=== PATIENT | female | born 1965 | race Caucasian/White ===

== ENCOUNTER → 2018-12-22 | Outpatient (CLI) | payer BC ==
[2018-12-22 10:50] VITALS: BMI 32.8
== END | disposition home or self-care (01) ==
LOC: LABWHC1 08:56
PROVIDERS: ATTEND Family Medicine
DX: R73.03 Prediabetes (principal)
CPT/HCPCS: 97802

== ENCOUNTER 2020-05-24 00:48 | Emergency (ER) | payer BC ==
[2020-05-24 01:02] VITALS: RESP 18
[2020-05-24] MEDS ORDERED: SODIUM CHLORIDE 0.9% 500 ML 500 ML IV STA (01:09)
[2020-05-24] MEDS ORDERED: SODIUM CHLORIDE 0.9% 1,000 ML IV STA (01:09)
[2020-05-24] MEDS ORDERED: KETOROLAC 15 MG/ML 1 ML VIAL IVP STA ×2 (01:09→02:07)
[2020-05-24] MEDS ORDERED: ONDANSETRON 4 MG/2 ML VIAL IVP STA ×2 (01:09→02:32)
--- NOTE | 2020-05-24 01:27 | ED ---
General Adult HPI - General Chief complaint: Back Pain/Injury Stated complaint: Back pain Time Seen by Provider: 05/24/20 01:04 Source: patient, family, RN notes reviewed Mode of arrival: ambulatory Limitations: no limitations - History of Present Illness Initial comments: This a 54-year-old female presents emergency from chief complaint left flank pain. Patient states his symptoms started around 2:00 this afternoon. Patient states that started in her back in which she felt she just injured back. Patient states symptoms are progressively worse and she has left lower quadrant abdominal pain. Patient did have an episode of nausea vomiting no fevers or chills no history kidney stones. Patient states that nothing really makes pain feel better or worse. Denies any change in bowel habits no dysuria no hematuria. - Related Data Home Medications Medication Instructions Recorded Confirmed ALPRAZolam [Xanax] 1 mg PO TID PRN 05/24/15 05/26/15 Ibuprofen [Motrin] 800 mg PO DIRECTED PRN 05/24/15 05/26/15 Venlafaxine HCl ER [Effexor Xr] 150 mg PO DAILY 05/24/15 05/26/15 Previous Rx's Medication Instructions Recorded Ketorolac [Toradol] 10 mg PO Q8HR #15 tab 05/24/20 Ondansetron Odt [Zofran Odt] 4 mg PO Q8HR PRN #10 tab 05/24/20 Tamsulosin [Flomax] 0.4 mg PO DAILY #7 cap 05/24/20 Allergies Allergy/AdvReac Type Severity Reaction Status Date / Time codeine Allergy Nausea & Verified 05/24/20 01:02 Vomiting pain medications AdvReac Nausea Uncoded 05/24/20 01:02 Review of Systems ROS Statement: Those systems with pertinent positive or pertinent negative responses have been documented in the HPI. ROS Other: All systems not noted in ROS Statement are negative. Past Medical History Past Medical History: Skin Disorder Additional Past Medical History / Comment(s): rt elbow tendonitis, eczema, depression History of Any Multi-Drug Resistant Organisms: None Reported Past Surgical History: Appendectomy, Orthopedic Surgery Additional Past Surgical History / Comment(s): ganglion cyst, rt elbow surgery Past Anesthesia/Blood Transfusion Reactions: Motion Sickness, Postoperative Nausea & Vomiting (PONV) Past Psychological History: Anxiety, Depression Smoking Status: Former smoker Past Alcohol Use History: Occasional Past Drug Use History: Marijuana - Past Family History Mother Family Medical History: Cancer General Exam Limitations: no limitations General appearance: alert, in no apparent distress Head exam: Present: atraumatic, normocephalic, normal inspection Neck exam: Present: normal inspection, full ROM. Absent: tenderness, meningismus, lymphadenopathy Respiratory exam: Present: normal lung sounds bilaterally. Absent: respiratory distress, wheezes, rales, rhonchi, stridor Cardiovascular Exam: Present: regular rate, normal rhythm, normal heart sounds. Absent: systolic murmur, diastolic murmur, rubs, gallop, clicks GI/Abdominal exam: Present: soft, tenderness (Minimal left lower quadrant), normal bowel sounds. Absent: distended, guarding, rebound, rigid Back exam: Present: normal inspection, full ROM, tenderness, CVA tenderness (L) (Mild). Absent: CVA tenderness (R) Neurological exam: Present: alert, oriented X3 Skin exam: Present: warm, dry, intact, normal color. Absent: rash Course Vital Signs 05/24/20 00:57 Temperature 98.5 F Pulse Rate 98 Respiratory 18 Rate Blood Pressure 151/79 O2 Sat by Pulse 99 Oximetry Medical Decision Making - Medical Decision Making 54-year-old female presented for flank pain. CT shows evidence of 5 mm UVJ stone. Patient urinalysis reveals hematuria. Kidney function within normal limits. Patient discharged with pain medication, Flomax, Zofran and oral Toradol with follow-up with urology. - Lab Data Result diagrams: 05/24/20 01:25 05/24/20 01:25 Lab Results 05/24/20 05/24/20 05/24/20 Range/Units 01:25 01:25 01:25 WBC 12.2 H (3.8-10.6) k/uL RBC 4.68 (3.80-5.40) m/uL Hgb 15.1 (11.4-16.0) gm/dL Hct 45.9 (34.0-46.0) % MCV 98.2 (80.0-100.0) fL MCH 32.2 (25.0-35.0) pg MCHC 32.8 (31.0-37.0) g/dL RDW 12.3 (11.5-15.5) % Plt Count 241 (150-450) k/uL Neutrophils % 81 % Lymphocytes % 11 % Monocytes % 5 % Eosinophils % 0 % Basophils % 1 % Neutrophils # 9.9 H (1.3-7.7) k/uL Lymphocytes # 1.4 (1.0-4.8) k/uL Monocytes # 0.6 (0-1.0) k/uL Eosinophils # 0.0 (0-0.7) k/uL Basophils # 0.1 (0-0.2) k/uL Sodium 138 (137-145) mmol/L Potassium 4.2 (3.5-5.1) mmol/L Chloride 106 (98-107) mmol/L Carbon Dioxide 24 (22-30) mmol/L Anion Gap 8 mmol/L BUN 15 (7-17) mg/dL Creatinine 0.87 (0.52-1.04) mg/dL Est GFR (CKD-EPI)AfAm 87 (>60 ml/min/1.73 sqM) Est GFR (CKD-EPI)NonAf 75 (>60 ml/min/1.73 sqM) Glucose 139 H (74-99) mg/dL Calcium 9.6 (8.4-10.2) mg/dL Total Bilirubin 0.4 (0.2-1.3) mg/dL AST 21 (14-36) U/L ALT 14 (4-34) U/L Alkaline Phosphatase 81 (38-126) U/L Total Protein 7.1 (6.3-8.2) g/dL Albumin 4.3 (3.5-5.0) g/dL Amylase 63 (30-110) U/L Lipase 68 (23-300) U/L Urine Color Red Urine Appearance Turbid H (Clear) Urine pH 5.5 (5.0-8.0) Ur Specific [place] 1.028 (1.001-1.035) Urine Protein 2+ H (Negative) Urine Glucose (UA) Trace H (Negative) Urine Ketones Negative (Negative) Urine Blood Large H (Negative) Urine Nitrite Negative (Negative) Urine Bilirubin Negative (Negative) Urine Urobilinogen <2.0 (<2.0) mg/dL Ur Leukocyte Esterase Trace H (Negative) Urine RBC >182 H (0-5) /hpf Urine WBC 15 H (0-5) /hpf Ur Squamous Epith Cells 22 H (0-4) /hpf Urine Bacteria Occasional H (None) /hpf Hyaline Casts 7 H (0-2) /lpf Urine Mucus Many H (None) /hpf Disposition Clinical Impression: Left ureteral calculus Disposition: HOME SELF-CARE Condition: Stable Instructions (If sedation given, give patient instructions): Kidney Stones (ED) Additional Instructions: Please return to the Emergency Department if symptoms worsen or any other concerns. Prescriptions: Tamsulosin [Flomax] 0.4 mg PO DAILY #7 cap Ketorolac [Toradol] 10 mg PO Q8HR #15 tab Ondansetron Odt [Zofran Odt] 4 mg PO Q8HR PRN #10 tab PRN Reason: Nausea Is patient prescribed a controlled substance at d/c from ED?: No Referrals: Jared Esposito DO [Primary Care Provider] - 1-2 days Jose Albarran MD [STAFF PHYSICIAN] - 1-2 days Time of Disposition: 02:17
[2020-05-24 01:39] LABS: Basophils # (A) 0.1 k/uL (0-0.2); Basophils % (A) 1 %; Eosinophils % (A) 0 %; HCT 45.9 % (34.0-46.0); HGB 15.1 gm/dL (11.4-16.0); Lymphocytes # (A) 1.4 k/uL (1.0-4.8); Lymphocytes % (A) 11 %; MCH 32.2 pg (25.0-35.0); MCHC 32.8 g/dL (31.0-37.0); MCV 98.2 fL (80.0-100.0); Mean Platelet Volume 7.3; Monocytes # (A) 0.6 k/uL (0-1.0); Monocytes % (A) 5 %; Neutrophils # (A) 9.9 k/uL (1.3-7.7); Neutrophils % (A) 81 %; Platelet Count 241 k/uL (150-450); RBC 4.68 m/uL (3.80-5.40); RDW 12.3 % (11.5-15.5); WBC 12.2 k/uL (3.8-10.6)
[2020-05-24 01:42] LABS: Appearance,Urine Turbid (Clear); Bacteria,Urine Occasional /hpf; Bilirubin,Urine Negative (Negative); Blood,Urine Large (Negative); Color,Urine Red; Glucose,Urine (UA) Trace (Negative); Hyaline Casts,Urine 7 /lpf (0-2); Ketones,Urine Negative (Negative); Leukocyte Esterase,Urine Trace (Negative); Mucus,Urine Many /hpf; Nitrite,Urine Negative (Negative); PH, Urine 5.5 (5.0-8.0); Protein,Urine 2+ (Negative); RBC,Urine >182 /hpf (0-5); Specific Gravity,Urine 1.028 (1.001-1.035); Squamous Epithelial Cell,Urine 22 /hpf (0-4); Urobilinogen,Urine <2.0 mg/dL (<2.0); WBC,Urine 15 /hpf (0-5)
[2020-05-24 01:46] LABS: Albumin 4.3 g/dL (3.5-5.0); Calcium 9.6 mg/dL (8.4-10.2); Potassium 4.2 mmol/L (3.5-5.1); Total Bilirubin 0.4 mg/dL (0.2-1.3); Total Protein 7.1 g/dL (6.3-8.2)
--- NOTE | 2020-05-24 01:47 | CT ---
EXAMINATION TYPE: CT abdomen pelvis wo con DATE OF EXAM: 05/24/2020 COMPARISON: None HISTORY: pain CT DLP: 771 mGycm Automated exposure control for dose reduction was used. Lung bases are clear. There is no pleural effusion. Heart size is normal. There is no pericardial eff usion. Liver spleen pancreas stomach gallbladder appear normal. Bile ducts are not dilated. There is no adrenal mass. Kidneys show normal size. There is left side hydronephrosis and perinephric edema. There is 5 mm obstructing calculus at the left ureteropelvic junction. There is 3 mm calculus lower pole left kidney. There is 2 mm calculus interpolar right kidney. There is no retroperitoneal adenopathy. Bladder distends smoothly. There is no inguinal hernia. There is no free fluid in the pel vis. There is no evidence of pelvic mass. There is no mesenteric edema. There is no ascites or free air. There is no bowel obstruction. Appendi x is not seen. There is no sign of thickened appendix. The lumbar vertebra have normal spacing and alignment. Posterior elements are intact. There is no com pression fracture. Bony pelvis is intact. IMPRESSION: Obstructing calculus at the left ureteropelvic junction with left-sided hydronephrosis and perinephri c edema. Small bilateral renal calculi.
[2020-05-24] MEDS ORDERED: TAMSULOSIN 0.4 MG CAP.ER.24H PO STA (02:07)
[2020-05-24] MEDS ORDERED: HYDROmorphone 0.5 MG/0.5 ML SYRINGE IVP STA (02:32)
[2020-05-24] MEDS ORDERED: traMADol 50 MG STARTER PACK 3 TAB BTL PO STA (02:32)
[2020-05-24 03:14] VITALS: BP 150/91; PULSE 99; TEMP 98.6
== END 2020-05-24 03:13 | disposition home or self-care (01) ==
LOC: EC 00:48
DX: N13.2 Hydronephrosis with renal and ureteral calculous obstruction (principal); F41.9 Anxiety disorder, unspecified; F32.9 Major depressive disorder, single episode, unspecified; Z79.899 Other long term (current) drug therapy; Z88.5 Allergy status to narcotic agent; Z87.891 Personal history of nicotine dependence
CPT/HCPCS: 36415; 80053; 82150; 83690; 85025; 81001; 87086; 74176; 99284; 96374; 96375 ×2; 96376 ×2; 96361; J2405; J1885; J1170

== ENCOUNTER → 2020-12-23 | Outpatient (CLI) | payer OTHER ==
--- NOTE | 2020-12-26 14:35 | MM ---
Reason for exam: screening (asymptomatic). Last mammogram was performed 6 years and 3 months ago. History: Patient is postmenopausal and is nulliparous. Physical Findings: A clinical breast exam by your physician is recommended on an annual basis and results should be correlated with mammographic findings. MG Screening Mammo w CAD Bilateral CC and MLO view(s) were taken. Prior study comparison: September 24, 2014, bilateral MG screening mammo w CAD. September 18, 2013, bilateral digital screening mammo w/CAD. There are scattered fibroglandular densities. There is chronic nodularity in the left axilla. There is no discrete abnormality. ASSESSMENT: Benign, BI-RAD 2 RECOMMENDATION: Routine screening mammogram of both breasts in 1 year.
== END | disposition home or self-care (01) ==
LOC: RADMAMWWP 09:12
PROVIDERS: ATTEND Obstetrics & Gynecology Obstetrics
DX: Z12.31 Encounter for screening mammogram for malignant neoplasm of breast (principal); Z78.0 Asymptomatic menopausal state
CPT/HCPCS: 77067

== ENCOUNTER → 2022-01-19 | Outpatient (CLI) | payer OTHER ==
--- NOTE | 2022-01-23 14:33 | MM ---
Reason for Exam: Screening (asymptomatic). Last mammogram was performed 1 year(s) and 1 month(s) ago. Patient History: Menarche at age 11. Patient has no children. Postmenopausal. Film Views: Bilateral CC views were taken. Bilateral MLO views were taken. Prior Study Comparison: 09/24/2014 Bilateral Screening Mammogram, [facility]. 12/23/2020 Bilateral Screening Mammogram, [facility]. Tissue Density: The breast tissue is heterogeneously dense. This may lower the sensitivity of mammography. Findings: Analyzed By CAD. Developing asymmetry right inferior breast at middle depth. Overall Assessment: Incomplete: need additional imaging evaluation, BI-RAD 0 Management: Special View Mammogram of the right breast. [facility] will attempt to contact patient to return for supplemental views.
== END | disposition home or self-care (01) ==
LOC: RADMAMWWP 14:53
PROVIDERS: ATTEND Obstetrics & Gynecology Obstetrics
DX: Z12.31 Encounter for screening mammogram for malignant neoplasm of breast (principal)
CPT/HCPCS: 77067

== ENCOUNTER → 2022-02-02 | Outpatient (CLI) | payer OTHER ==
--- NOTE | 2022-02-13 07:16 | MM ---
Reason for Exam: Follow-up at short interval from prior study. Last screening mammogram was performed less than 1 month ago. Patient History: Menarche at age 11. Patient has no children. Postmenopausal. Risk Values: Winnie 5 year model risk: 1.4%. NCI Lifetime model risk: 8.7%. Prior Study Comparison: 08/29/2010 Bilateral Screening Mammogram, [facility]. 09/18/2013 Bilateral Screening Mammogram, [facility]. 12/23/2020 Bilateral Screening Mammogram, [facility]. 01/19/2022 Bilateral MG screening mammo w CAD, [facility]. Tissue Density: Right: There are scattered fibroglandular densities. Findings: Analyzed By CAD. Area of concern inferiorly right breast is less prominent, patient states recent skin lesion or pimple which is diminishing in size. Mammographic findings correlate. Overall Assessment: Benign, BI-RAD 2 Management: Screening Mammogram of both breasts in 1 year. A clinical breast exam by your physician is recommended on an annual basis and results should be correlated with mammographic findings. This exam should not preclude additional follow-up of suspicious palpable abnormalities. Results were given to the patient verbally at the time of exam. Electronically signed and approved by: Huan West M.D.
== END | disposition home or self-care (01) ==
LOC: RADMAMWWP 13:37
PROVIDERS: ATTEND Obstetrics & Gynecology Obstetrics
DX: R92.8 Other abnormal and inconclusive findings on diagnostic imaging of breast (principal)
CPT/HCPCS: 77061; 77065

== ENCOUNTER 2022-08-30 02:10 | Observation (INO) | payer OTHER ==
[2022-08-30] MEDS ORDERED: KETOROLAC 15 MG/ML 1 ML VIAL IVP STA (02:35)
[2022-08-30] MEDS ORDERED: SODIUM CHLORIDE 0.9% 1,000 ML IV STA ×2 (02:35→03:49)
[2022-08-30] MEDS ORDERED: ONDANSETRON 4 MG/2 ML VIAL IVP STA (02:35)
--- NOTE | 2022-08-30 02:38 | ED ---
General Adult HPI - General Chief complaint: Abdominal Pain Stated complaint: Side pain, back pain Time Seen by Provider: 08/30/22 02:20 Source: patient, RN notes reviewed Mode of arrival: ambulatory Limitations: no limitations - History of Present Illness Initial comments: 57-year-old female presents to the emergency Department with complaints of right flank pain that radiates to the right lower quadrant. Patient states her symptoms are accompanied by nausea and vomiting. Reports this pain began tonight. Patient states she has a history of kidney stones and feels as if this discomfort is similar. States she tried to take Toradol prior to arrival patient vomited. Denies any recent sick contacts. SHe has been feeling well otherwise. No fever, chills, headache, dizziness, chest pain, shortness of breath, dysuria, diarrhea. Reports history of appendectomy. - Related Data Home Medications Medication Instructions Recorded Confirmed ALPRAZolam [Xanax] 1 mg PO BID PRN 05/24/15 08/30/22 Venlafaxine HCl [Effexor XR] 75 mg PO DAILY 08/30/22 08/30/22 Allergies Allergy/AdvReac Type Severity Reaction Status Date / Time codeine Allergy Nausea & Verified 08/30/22 08:39 Vomiting pain medications AdvReac Nausea Uncoded 08/30/22 08:39 Review of Systems ROS Statement: Those systems with pertinent positive or pertinent negative responses have been documented in the HPI. ROS Other: All systems not noted in ROS Statement are negative. Past Medical History Past Medical History: Skin Disorder Additional Past Medical History / Comment(s): rt elbow tendonitis, eczema, depression History of Any Multi-Drug Resistant Organisms: None Reported Past Surgical History: Appendectomy, Orthopedic Surgery Additional Past Surgical History / Comment(s): ganglion cyst, rt elbow surgery Past Anesthesia/Blood Transfusion Reactions: Motion Sickness, Postoperative Nausea & Vomiting (PONV) Past Psychological History: Anxiety, Depression Smoking Status: Former smoker Past Alcohol Use History: Occasional Past Drug Use History: Marijuana - Past Family History Mother Family Medical History: Cancer General Exam Limitations: no limitations General appearance: alert, in no apparent distress (Well-developed, well- nourished female in no acute distress, though does appear moderately uncomfortable.) ENT exam: Present: mucous membranes dry Respiratory exam: Present: normal lung sounds bilaterally. Absent: respiratory distress, wheezes, rales, rhonchi, stridor Cardiovascular Exam: Present: regular rate, normal rhythm, normal heart sounds. Absent: systolic murmur, diastolic murmur, rubs, gallop, clicks GI/Abdominal exam: Present: soft, normal bowel sounds. Absent: distended, tenderness, guarding, rebound, rigid Back exam: Present: CVA tenderness (R) Neurological exam: Present: alert, oriented X3 Psychiatric exam: Present: anxious Skin exam: Present: warm, dry, intact, normal color Course Vital Signs 08/30/22 02:14 Temperature 97.7 F Pulse Rate 86 Respiratory 18 Rate Blood Pressure 99/59 O2 Sat by Pulse 96 Oximetry - Reevaluation(s) Reevaluation #1: 08/30/22 03:52 Upon reassessment, patient reports pain and nausea are much improved. Aware of need for urine sample. Updated on results of laboratory studies at this time. CT results pending. 08/30/22 04:42 Patient updated on results. She is providing a urine sample at this time. Intent to discharge home provided pain is controlled. Patient verbalizes understanding and agrees with this plan. 08/30/22 05:15 Patient unable to provide urine specimen. Bladder scan ordered. Continues to have pain and nausea. Will admit for intractable pain. Medical Decision Making - Medical Decision Making This is a pleasant 57-year-old female with a past medical history of renal calculi who presents to the emergency department for evaluation of right flank pain accompanied by nausea and vomiting. Patient suspects she has a kidney stone. Upon exam, patient is initially ill-appearing due to pain and vomiting. Laboratory studies were obtained showing leukocytosis (WBC 14) which is likely reactive to vomiting as patient is afebrile and not tachycardic. BUN 25. IV fluids, pain medicine, and nausea medicine were given with some improvement. CT which showed a 3 mm stone in the right ureter with some right sided hydronephrosis. Discussed disposition, however, given patient's ongoing discomfo rt and concerns with discharge home, she will be admitted for further evaluation and treatment. I spoke with JOHN Carvajal who agrees to accept this patient. Patient verbalizes understanding and agrees with this plan. Attending: Shruthi - Lab Data Result diagrams: 08/30/22 02:38 08/30/22 02:38 Lab Results 12/22/22 12/22/22 Range/Units 02:38 02:38 WBC 14.0 H (3.8-10.6) k/uL RBC 4.18 (3.80-5.40) m/uL Hgb 14.4 (11.4-16.0) gm/dL Hct 41.5 (34.0-46.0) % MCV 99.2 (80.0-100.0) fL MCH 34.4 (25.0-35.0) pg MCHC 34.7 (31.0-37.0) g/dL RDW 12.4 (11.5-15.5) % Plt Count 210 (150-450) k/uL MPV 8.5 Neutrophils % 78 % Lymphocytes % 15 % Monocytes % 4 % Eosinophils % 1 % Basophils % 1 % Neutrophils # 10.9 H (1.3-7.7) k/uL Lymphocytes # 2.0 (1.0-4.8) k/uL Monocytes # 0.6 (0-1.0) k/uL Eosinophils # 0.2 (0-0.7) k/uL Basophils # 0.1 (0-0.2) k/uL Sodium 138 (137-145) mmol/L Potassium 4.3 (3.5-5.1) mmol/L Chloride 106 (98-107) mmol/L Carbon Dioxide 22 (22-30) mmol/L Anion Gap 10 mmol/L BUN 25 H (7-17) mg/dL Creatinine 0.81 (0.52-1.04) mg/dL Est GFR (CKD-EPI)AfAm >90 (>60 ml/min/1.73 sqM) Est GFR (CKD-EPI)NonAf 81 (>60 ml/min/1.73 sqM) Glucose 125 H (74-99) mg/dL Calcium 9.1 (8.4-10.2) mg/dL Total Bilirubin 0.2 (0.2-1.3) mg/dL AST 23 (14-36) U/L ALT 17 (4-34) U/L Alkaline Phosphatase 107 (38-126) U/L Total Protein 6.9 (6.3-8.2) g/dL Albumin 4.3 (3.5-5.0) g/dL - Radiology Data Radiology results: report reviewed, image reviewed CT of the abdomen and pelvis without contrast was obtained. Report was reviewed in its entirety. Impression per Dr. West is there is a 3 mm calculus in the right proximal ureter causing mild to moderate right sided hydronephrosis. Disposition Clinical Impression: Right renal stone, Intractable pain, Nausea and vomiting, Calculus of right ureter Disposition: ADMITTED IP TO THIS HOSP Condition: Fair
[2022-08-30 02:44] LABS: Basophils # (A) 0.1 k/uL (0-0.2); Basophils % (A) 1 %; Eosinophils # (A) 0.2 k/uL (0-0.7); Eosinophils % (A) 1 %; HCT 41.5 % (34.0-46.0); HGB 14.4 gm/dL (11.4-16.0); Lymphocytes % (A) 15 %; MCH 34.4 pg (25.0-35.0); MCHC 34.7 g/dL (31.0-37.0); MCV 99.2 fL (80.0-100.0); Mean Platelet Volume 8.5; Monocytes # (A) 0.6 k/uL (0-1.0); Monocytes % (A) 4 %; Neutrophils # (A) 10.9 k/uL (1.3-7.7); Neutrophils % (A) 78 %; Platelet Count 210 k/uL (150-450); RBC 4.18 m/uL (3.80-5.40); RDW 12.4 % (11.5-15.5)
[2022-08-30] MEDS ORDERED: HYDROmorphone 0.5 MG/0.5 ML SYRINGE IVP STA ×2 (02:53→04:50)
[2022-08-30 02:54] LABS: ALT 17 U/L (4-34); AST 23 U/L (14-36); African American GFR (CKD) >90 (>60 ml/min/1.73 sqM); Albumin 4.3 g/dL (3.5-5.0); Alkaline Phosphatase 107 U/L (38-126); Anion Gap 10 mmol/L; Blood Urea Nitrogen 25 mg/dL (7-17); Calcium 9.1 mg/dL (8.4-10.2); Carbon Dioxide 22 mmol/L (22-30); Chloride 106 mmol/L (98-107); Glucose 125 mg/dL (74-99); Non-African American GFR(CKD) 81 (>60 ml/min/1.73 sqM); Potassium 4.3 mmol/L (3.5-5.1); Sodium 138 mmol/L (137-145); Total Bilirubin 0.2 mg/dL (0.2-1.3); Total Protein 6.9 g/dL (6.3-8.2)
--- NOTE | 2022-08-30 04:37 | CT ---
EXAMINATION TYPE: CT abdomen pelvis wo con DATE OF EXAM: 08/30/2022 HISTORY: Right flank pain. CT DLP: 571 mGycm. Automated Exposure Control for Dose Reduction was Utilized. TECHNIQUE: CT scan of the abdomen and pelvis is performed without oral or IV contrast. COMPARISON: Prior CT May 24, 2020 FINDINGS: Within the limitations of a non-contrast study, the following observations are made. LUNG BASES: No significant abnormality is appreciated. LIVER/GB: No significant abnormality is appreciated. PANCREAS: No significant abnormality is seen. SPLEEN: No significant abnormality is seen. ADRENALS: No significant abnormality is seen. KIDNEYS: No left-sided nephrolithiasis or hydronephrosis current study. There is a 7 mm calculus right kidney mid to lower pole level axial image 55. There is mild to modera te right-sided hydronephrosis due to obstructing 3 mm calculus in the proximal right ureter axial jacquelyn ge 63. There is asymmetric right renal enlargement with mild/moderate perinephric fat stranding presu med related to obstructing ureter calculus. No intraluminal calculus in the bladder. BOWEL: No significant abnormality is seen. GENITAL ORGANS: No gross abnormality seen. LYMPH NODES: No greater than 1cm abdominal or pelvic lymph nodes are appreciated. OSSEOUS STRUCTURES: Multilevel facet arthropathy in the mid to lower lumbar spine is redemonstrated. OTHER: Mild/moderate calcified plaque of the aorta extends into branch vessels. IMPRESSION: There is 3 mm calculus in the proximal right ureter causing [id number] right-sided hydronephrosis.
[2022-08-30] MEDS ORDERED: NALOXONE 0.4 MG/ML 1 ML VIAL IV PRN (05:30)
[2022-08-30] MEDS ORDERED: ONDANSETRON 4 MG/2 ML VIAL IVP PRN ×2 (05:30→13:42)
[2022-08-30] MEDS ORDERED: ACETAMINOPHEN TAB 325 MG TAB PO PRN (05:30)
[2022-08-30] MEDS ORDERED: HYDROmorphone 0.5 MG/0.5 ML SYRINGE IVP PRN (05:39)
[2022-08-30] MEDS: SODIUM CHLORIDE 0.9% 1,000 ML IV SCH ×3 (05:48→20:16)
[2022-08-30] MEDS ORDERED: HYDROmorphone 2 MG TAB PO PRN (06:00)
[2022-08-30] MEDS ORDERED: HYDROcodone/APAP 5-325MG 1 EACH TAB PO PRN (08:57)
[2022-08-30 09:40] LABS: Amorphous Sediment,Urine Rare /hpf; Appearance,Urine Cloudy (Clear); Bilirubin,Urine Negative (Negative); Blood,Urine Large (Negative); Color,Urine Yellow; Glucose,Urine (UA) Trace (Negative); Ketones,Urine 1+ (Negative); Leukocyte Esterase,Urine Negative (Negative); Mucus,Urine Occasional /hpf; Nitrite,Urine Negative (Negative); PH, Urine 5.5 (5.0-8.0); Protein,Urine Trace (Negative); RBC,Urine 25 /hpf (0-5); Specific Gravity,Urine 1.025 (1.001-1.035); Squamous Epithelial Cell,Urine 5 /hpf (0-4); Urobilinogen,Urine <2.0 mg/dL (<2.0); WBC,Urine 3 /hpf (0-5)
[2022-08-30] MEDS ORDERED: ALPRAZolam 0.5 MG TAB PO PRN (10:53)
[2022-08-30] MEDS ORDERED: FAMOTIDINE 20 MG TAB PO SCH (11:00)
--- NOTE | 2022-08-30 12:01 | P.HPIM ---
History of Present Illness 51-year-old pleasant female came in with complaints of right flank pain severity or crampy nature 10/10 in severity with the nausea vomiting. Patient's symptoms improved at this time patient with intravenous. Patient and urinalysis is abnormal for a squamous epithelial cells and RBCs Consistent with kidney stones. Patient IV fluids which are being continued and patient will be evaluated by urology. Patient doesn't have any fevers chills. REVIEW OF SYSTEMS: CONSTITUTIONAL: No fever, no malaise, no fatigue. HEENT: No recent visual problems or hearing problems. Denied any sore throat. CARDIOVASCULAR: No chest pain, orthopnea, PND, no palpitations, no syncope. PULMONARY: No shortness of breath, no cough, no hemoptysis. GASTROINTESTINAL: As mentioned in HPI NEUROLOGICAL: No headaches, no weakness, no numbness. HEMATOLOGICAL: Denies any bleeding or petechiae. GENITOURINARY: Denies any burning micturition, frequency, or urgency. MUSCULOSKELETAL/RHEUMATOLOGICAL: Denies any joint pain, swelling, or any muscle pain. ENDOCRINE: Denies any polyuria or polydipsia. The rest of the 14-point review of systems is negative. PHYSICAL EXAMINATION: GENERAL: The patient is alert and oriented x3, not in any acute distress. Well developed, well nourished. HEENT: Pupils are round and equally reacting to light. EOMI. No scleral icterus. No conjunctival pallor. Normocephalic, atraumatic. No pharyngeal erythema. No thyromegaly. CARDIOVASCULAR: S1 and S2 present. No murmurs, rubs, or gallops. PULMONARY: Chest is clear to auscultation, no wheezing or crackles. ABDOMEN: Soft, nontender, nondistended, normoactive bowel sounds. No palpable organomegaly. MUSCULOSKELETAL: No joint swelling or deformity. EXTREMITIES: No cyanosis, clubbing, or pedal edema. NEUROLOGICAL: Gross neurological examination did not reveal any focal deficits. SKIN: No rashes. Assessment and plan -Right-sided nephrolithiasis with the mild hydronephrosis, patient IV fluids if patient has some chronic and improvement patient can be discharged, patient will be evaluated by urology. Continue with Toradol for pain IV fluids. There is no evidence of UTI, patient will not require any antibiotics -Leukocytosis secondary to nephrolithiasis -Depression Patient will be discharged later today if patient has symptomatic improvement and if cleared by neurology Past Medical History Past Medical History: Skin Disorder Additional Past Medical History / Comment(s): rt elbow tendonitis, eczema, depression History of Any Multi-Drug Resistant Organisms: None Reported Past Surgical History: Appendectomy, Orthopedic Surgery Additional Past Surgical History / Comment(s): ganglion cyst, rt elbow surgery Past Anesthesia/Blood Transfusion Reactions: Motion Sickness, Postoperative Nausea & Vomiting (PONV) Past Psychological History: Anxiety, Depression Smoking Status: Former smoker Past Alcohol Use History: Occasional Past Drug Use History: Marijuana - Past Family History Mother Family Medical History: Cancer Medications and Allergies Home Medications Medication Instructions Recorded Confirmed Type ALPRAZolam [Xanax] 1 mg PO BID PRN 05/24/15 08/30/22 History Venlafaxine HCl [Effexor XR] 75 mg PO DAILY 08/30/22 08/30/22 History Allergies Allergy/AdvReac Type Severity Reaction Status Date / Time codeine Allergy Nausea & Verified 08/30/22 08:39 Vomiting pain medications AdvReac Nausea Uncoded 08/30/22 08:39 Physical Exam Vitals: Vital Signs Temp Pulse Resp BP Pulse Ox 08/30/22 02:14 97.7 F 86 18 99/59 96 Intake and Output 08/29/22 08/30/22 08/30/22 22:59 06:59 14:59 Output Total 99 Balance -99 Output: Post Void Residual 99 Other: Voiding Method Toilet # Voids 1 Weight 71.668 kg Results CBC & Chem 7: 08/30/22 02:38 08/30/22 02:38 Labs: Abnormal Lab Results - Last 24 Hours (Table) 08/30/22 08/30/22 08/30/22 Range/Units 02:38 02:38 09:10 WBC 14.0 H (3.8-10.6) k/uL Neutrophils # 10.9 H (1.3-7.7) k/uL BUN 25 H (7-17) mg/dL Glucose 125 H (74-99) mg/dL Urine Appearance Cloudy H (Clear) Urine Protein Trace H (Negative) Urine Glucose (UA) Trace H (Negative) Urine Ketones 1+ H (Negative) Urine Blood Large H (Negative) Urine RBC 25 H (0-5) /hpf Ur Squamous Epith Cells 5 H (0-4) /hpf Amorphous Sediment Rare H (None) /hpf Urine Mucus Occasional H (None) /hpf
--- NOTE | 2022-08-30 12:01 | P.DS ---
Providers Date of admission: 08/30/22 05:33 Attending physician: Thierry Sarah Consults: 08/30/22 05:40 Consult Physician Routine Consulting Provider: Harry Rees Consult Reason/Comments: 3mm obstructing stone, right proximal ureter Do you want consulting provider notified?: Yes, Notify in am [facility]: Reason for 2 history of present illness for further details Patient Condition at Discharge: Fair Plan - Discharge Summary New Discharge Prescriptions: Continue ALPRAZolam [Xanax] 1 mg PO BID PRN PRN Reason: Anxiety Venlafaxine HCl [Effexor XR] 75 mg PO DAILY Discharge Medication List ALPRAZolam [Xanax] 1 mg PO BID PRN 05/24/15 [History] Venlafaxine HCl [Effexor XR] 75 mg PO DAILY 08/30/22 [History] Follow up Appointment(s)/Referral(s): Jared Esposito DO [Primary Care Provider] - 3 Days Discharge Disposition: HOME SELF-CARE
[2022-08-30] MEDS: VENLAFAXINE HCL ER 75 MG CAP PO SCH (12:24)
[2022-08-30] MEDS: KETOROLAC 15 MG/ML 1 ML VIAL IVP PRN ×2 (13:05→20:16)
--- NOTE | 2022-08-30 13:45 | P.GSCN ---
History of Present Illness Consult date: 08/30/22 Reason for Consult: Right proximal ureter obstructing stone Requesting physician: Neida Perez History of present illness: The patient is a 57-year-old female with a past medical history of depression, anxiety, and kidney stones. She presented to the emergency department on 08/30/2022 with intractable right flank pain that radiates to her right lower quadrant and associated nausea and vomiting. She had a sudden onset of pain at approximately 11 PM last night has progressively gotten worse. The patient reports having kidney stones in the past however none of them required surgical intervention. She states she has never seen a urologist. Abdominal/pelvis CT shows a 3 mm calculus in the proximal right ureter causing mild to moderate right-sided hydronephrosis. Review of Systems - Constitutional Denies chills, Denies fever - EENT Ears, nose, mouth and throat: Denies headache - Cardiovascular Denies chest pain, Denies shortness of breath - Gastrointestinal Reports abdominal pain, Reports nausea, Reports vomiting - Genitourinary Genitourinary: Reports flank pain, Denies dysuria, Denies hematuria Past Medical History Past Medical History: Skin Disorder Additional Past Medical History / Comment(s): rt elbow tendonitis, eczema, depression History of Any Multi-Drug Resistant Organisms: None Reported Past Surgical History: Appendectomy, Orthopedic Surgery Additional Past Surgical History / Comment(s): ganglion cyst, rt elbow surgery Past Anesthesia/Blood Transfusion Reactions: Motion Sickness, Postoperative Nausea & Vomiting (PONV) Past Psychological History: Anxiety, Depression Smoking Status: Former smoker Past Alcohol Use History: Occasional Past Drug Use History: Marijuana - Past Family History Mother Family Medical History: Cancer Medications and Allergies Home Medications Medication Instructions Recorded Confirmed Type ALPRAZolam [Xanax] 1 mg PO BID PRN 05/24/15 08/30/22 History Venlafaxine HCl [Effexor XR] 75 mg PO DAILY 08/30/22 08/30/22 History Allergies Allergy/AdvReac Type Severity Reaction Status Date / Time codeine Allergy Nausea & Verified 08/30/22 08:39 Vomiting pain medications AdvReac Nausea Uncoded 08/30/22 08:39 Surgical - Exam Vital Signs Temp Pulse Resp BP Pulse Ox 97.7 F 86 18 99/59 96 08/30/22 02:14 08/30/22 02:14 08/30/22 02:14 08/30/22 02:14 08/30/22 02:14 General: Well developed, well nourished. HEENT: Head is atraumatic, normocephalic. Lungs: Respirations even and nonlabored. On RA Abdomen/GI: Soft. No guarding, rigidity, or abdominal tenderness. : No suprapubic tenderness. Skin: Warm and dry Neurologic: Awake, alert and oriented times 3. CN II-XII grossly intact. No focal deficits. Psychiatric: Appropriate mood and affect. Results - Labs 08/30/22 02:38 08/30/22 02:38 Abnormal Lab Results - Last 24 Hours (Table) 08/30/22 08/30/22 08/30/22 Range/Units 02:38 02:38 09:10 WBC 14.0 H (3.8-10.6) k/uL Neutrophils # 10.9 H (1.3-7.7) k/uL BUN 25 H (7-17) mg/dL Glucose 125 H (74-99) mg/dL Urine Appearance Cloudy H (Clear) Urine Protein Trace H (Negative) Urine Glucose (UA) Trace H (Negative) Urine Ketones 1+ H (Negative) Urine Blood Large H (Negative) Urine RBC 25 H (0-5) /hpf Ur Squamous Epith Cells 5 H (0-4) /hpf Amorphous Sediment Rare H (None) /hpf Urine Mucus Occasional H (None) /hpf Diabetes panel 08/30/22 Range/Units 02:38 Sodium 138 (137-145) mmol/L Potassium 4.3 (3.5-5.1) mmol/L Chloride 106 (98-107) mmol/L Carbon Dioxide 22 (22-30) mmol/L BUN 25 H (7-17) mg/dL Creatinine 0.81 (0.52-1.04) mg/dL Glucose 125 H (74-99) mg/dL Calcium 9.1 (8.4-10.2) mg/dL AST 23 (14-36) U/L ALT 17 (4-34) U/L Alkaline Phosphatase 107 (38-126) U/L Total Protein 6.9 (6.3-8.2) g/dL Albumin 4.3 (3.5-5.0) g/dL Calcium panel 08/30/22 Range/Units 02:38 Calcium 9.1 (8.4-10.2) mg/dL Albumin 4.3 (3.5-5.0) g/dL Pituitary panel 08/30/22 Range/Units 02:38 Sodium 138 (137-145) mmol/L Potassium 4.3 (3.5-5.1) mmol/L Chloride 106 (98-107) mmol/L Carbon Dioxide 22 (22-30) mmol/L BUN 25 H (7-17) mg/dL Creatinine 0.81 (0.52-1.04) mg/dL Glucose 125 H (74-99) mg/dL Calcium 9.1 (8.4-10.2) mg/dL Adrenal panel 08/30/22 Range/Units 02:38 Sodium 138 (137-145) mmol/L Potassium 4.3 (3.5-5.1) mmol/L Chloride 106 (98-107) mmol/L Carbon Dioxide 22 (22-30) mmol/L BUN 25 H (7-17) mg/dL Creatinine 0.81 (0.52-1.04) mg/dL Glucose 125 H (74-99) mg/dL Calcium 9.1 (8.4-10.2) mg/dL Total Bilirubin 0.2 (0.2-1.3) mg/dL AST 23 (14-36) U/L ALT 17 (4-34) U/L Alkaline Phosphatase 107 (38-126) U/L Total Protein 6.9 (6.3-8.2) g/dL Albumin 4.3 (3.5-5.0) g/dL - Imaging CT scan - abdomen: report reviewed CT scan - pelvis: report reviewed Assessment and Plan Assessment: Upon examination, the patient was very nauseated and vomited. She reports 7/10 right flank pain that radiates to her right lower quadrant. She states her current pain medication regimen is helping somewhat. She denies any hematuria however has noticed her urine has been dark in color. She states she is experiencing urgency and frequency. She states she does not always feel like she is emptying her bladder completely. She denies any dysuria. Her vital signs are stable, she is afebrile, and she is on room air. WBC 14.0, hemoglobin 14.4, serum creatinine 0.81. Urinalysis is positive for blood however it is not suggestive of infection. The patient was informed that with a 3 mm stone there is a good chance she could pass it on her own. The patient stated she does not want to have surgery and she prefers to try and pass the stone spontaneously. We will keep the patient hospitalized to keep her nausea and pain well managed. I concur with Rosa Siegel assessment after reviewing the patient's chart examining and discussing the situation with the patient. We'll observe her to make sure her pain and nausea is controlled and see if she can pass this spontaneously at home. Harry Rees M.D. (1) Calculus of right ureter Current Visit: Yes Status: Acute Code(s): N20.1 - CALCULUS OF URETER SNOMED Code(s): 25529146 (2) Right renal stone Current Visit: Yes Status: Acute Code(s): N20.0 - CALCULUS OF KIDNEY SNOMED Code(s): 04261005 Plan: - Stain urine - Continue Toradol and Dilaudid as needed for pain - Added [place] as needed to pain regimen - Continue IV hydration - Continue Zofran as needed for nausea - Compazine added - Obtain PVR to check for retention - Monitor serum creatinine Thank you for this consultation Impression and plan of care have been directed as dictated by the signing physician. Rosa Moreno nurse practitioner acting as scribe for signing phys ician. Rosa Moreno [facility] Palliative Care/Urology [facility] [id number] Email: [email or web address]
[2022-08-30] MEDS: PROCHLORPERAZINE INJ 10 MG/2 ML VIAL IVP PRN ×2 (14:24→20:16)
[2022-08-30] MEDS: PANTOPRAZOLE 40 MG/10 ML VIAL IVP SCH ×2 (14:27→20:15)
[2022-08-31] MEDS: SODIUM CHLORIDE 0.9% 1,000 ML IV SCH ×2 (02:00→12:32)
[2022-08-31] MEDS: KETOROLAC 15 MG/ML 1 ML VIAL IVP PRN (02:24)
--- NOTE | 2022-08-31 07:56 | P.PN ---
Subjective Progress Note Date: 08/31/22 The patient was in the hospital for ureteral stone. She passed it early this morning. She feels much better. She also has a larger stone in her kidney. I discussed with her about addressing this as an outpatient at a later date. From urologic standpoint she can be discharged home. I did see her in the office in 3-4 weeks. Objective - Vital Signs Vital signs: Vital Signs Temp 97.8 F 08/31/22 02:21 Pulse 92 08/31/22 02:21 Resp 17 08/31/22 02:21 BP 154/89 08/31/22 02:21 Pulse Ox 92 L 08/31/22 02:21 FiO2 Intake & Output 08/30/22 08/31/22 08/31/22 18:59 06:59 18:59 Intake Total 240 Output Total 99 Balance 141 Weight 71.668 kg Intake: Oral 240 Output: Post Void Residual 99 Other: Voiding Method Toilet Toilet # Voids 1 3 - Labs CBC & Chem 7: 08/30/22 02:38 08/30/22 02:38 Labs: Abnormal Lab Results - Last 24 Hours (Table) 08/30/22 Range/Units 09:10 Urine Appearance Cloudy H (Clear) Urine Protein Trace H (Negative) Urine Glucose (UA) Trace H (Negative) Urine Ketones 1+ H (Negative) Urine Blood Large H (Negative) Urine RBC 25 H (0-5) /hpf Ur Squamous Epith Cells 5 H (0-4) /hpf Amorphous Sediment Rare H (None) /hpf Urine Mucus Occasional H (None) /hpf Assessment and Plan (1) Calculus of right ureter Current Visit: Yes Status: Acute Code(s): N20.1 - CALCULUS OF URETER SNO MED Code(s): 29813645 (2) Right renal stone Current Visit: Yes Status: Acute Code(s): N20.0 - CALCULUS OF KIDNEY SNOMED Code(s): 28262757
[2022-08-31 07:59] VITALS: BP 111/68; PULSE 99; RESP 16; TEMP 98
[2022-08-31] MEDS ORDERED: ENOXAPARIN 40 MG/0.4 ML SYRINGE SQ SCH (09:00)
[2022-08-31] MEDS: PANTOPRAZOLE 40 MG/10 ML VIAL IVP SCH (09:03)
[2022-08-31] MEDS: VENLAFAXINE HCL ER 75 MG CAP PO SCH (09:04)
[2022-08-31] MEDS ORDERED: PANTOPRAZOLE 40 MG TABLET PO SCH (17:30)
--- NOTE | 2022-09-03 09:14 | P.DS ---
Providers Date of admission: 08/30/22 05:33 Expected date of discharge: 08/31/22 Attending physician: Thierry Sarah Consults: 08/30/22 05:40 Consult Physician Routine Consulting Provider: Harry Rees Consult Reason/Comments: 3mm obstructing stone, right proximal ureter Do you want consulting provider notified?: Yes, Notify in am Primary care physician: Jared Esposito [place] [facility] Course: Final diagnosis -Right-sided nephrolithiasis with the mild hydronephrosis secondary to kidney stone -Leukocytosis secondary to nephrolithiasis -Depression -Former smoker -DVT prophylaxis -GI prophylaxis -Full code Discharge disposition Patient is being discharged in a stable condition with guarded prognosis to home. Patient will follow-up with Dr. Esposito in the outpatient setting upon discharge. Patient is to follow-up with urology as scheduled. Total time taken is greater than 35 minutes. Hospital course This is a 57-year-old female who was recently admitted with abdominal pain found to have nephrolithiasis with right-sided mild hydronephrosis being closely monitored. Patient was evaluated by urology and appears to have passed the stone and urine culture was negative. Patient's pain improved and has been cleared by urology. Please refer to other consultations notes for further HPI. Patient remains afebrile and anxious to go home. Currently no reports of chest pain, shortness of breath, or palpitations. Patient is afebrile. No reports of nausea or vomiting and patient is tolerating diet. Patient will be discharged home today. Physical exam: Gen: This is a 57-year-old female who is awake, alert and oriented 3, well- developed, well-nourished. HEENT: Head is atraumatic, normocephalic. Pupils equal, round. Sclerae is anicteric. NECK: Supple. No JVD. No lymphadenopathy. No thyromegaly. LUNGS: Diminished breath sounds bilaterally with No wheezes or rhonchi. No intercostal retractions. HEART: S1, S2 are muffled ABDOMEN: Soft. Bowel sounds are present. No masses. No tenderness. EXTREMITIES: No pedal edema. No calf tenderness. NEUROLOGICAL: Patient is awake, alert and oriented x3. Cranial nerves 2 through 12 are grossly intact. Please refer to medication reconciliation sheet for a list of medications. The impression and plan of care has been dictated by Mellissa Tadeo, Nurse Practitioner as directed. Dr. Kimo MD I have performed a history and examination and MDM of this patient, discussed the same with the dictator, and agree with the dictator's assessment and plan as written ,documented as a scribe. Based on total visit time, I have performed more than 50% of the visit. Patient Condition at Discharge: Fair Plan - Discharge Summary Discharge Rx Participant: No New Discharge Prescriptions: New Acetaminophen Tab [Tylenol] 650 mg PO Q6HR PRN tab PRN Reason: Mild Pain Or Fever > 100.5 Continue ALPRAZolam [Xanax] 1 mg PO BID PRN PRN Reason: Anxiety Venlafaxine HCl [Effexor XR] 75 mg PO DAILY Discharge Medication List ALPRAZolam [Xanax] 1 mg PO BID PRN 05/24/15 [History] Venlafaxine HCl [Effexor XR] 75 mg PO DAILY 08/30/22 [History] Acetaminophen Tab [Tylenol] 650 mg PO Q6HR PRN tab 08/31/22 [Rx] Follow up Appointment(s)/Referral(s): Jared Esposito DO [Primary Care Provider] - 3 Days Harry Rees MD [STAFF PHYSICIAN] - 3 Weeks Ambulatory/Diagnostic Orders: Complete Blood Count w/diff [LAB.AMB] Time Frame: 3 Days, Location: None Selected Activity/Diet/Wound Care/Special Instructions: Activity Limited until follow-up Follow-up with primary care provider on discharge Follow-up with urology outpatient Continue to encourage fluids and rest Monitor for any fevers attempts Discharge Disposition: HOME SELF-CARE
== END 2022-08-31 12:48 | disposition home or self-care (01) ==
LOC: EC 02:10 → 6NMEDSUR 05:33
PROVIDERS: ADMIT Hospitalist; ATTEND Hospitalist
DX: N13.2 Hydronephrosis with renal and ureteral calculous obstruction (principal); F32.A Depression, unspecified; F41.9 Anxiety disorder, unspecified; L30.9 Dermatitis, unspecified; Z79.899 Other long term (current) drug therapy; Z88.5 Allergy status to narcotic agent; Z87.442 Personal history of urinary calculi; Z87.891 Personal history of nicotine dependence; Z90.49 Acquired absence of other specified parts of digestive tract; Z98.890 Other specified postprocedural states; Z80.9 Family history of malignant neoplasm, unspecified
CPT/HCPCS: 96376 ×3; 96361 ×3; 96375 ×2; 96374; 99285; 51798; 36415; 80053; 85025; 81001; 82365; 74176; G0378 ×2; J0780; J2405; J1885 ×2; C9113 ×2; J1170

== ENCOUNTER → 2023-02-15 | Outpatient (CLI) | payer OTHER ==
--- NOTE | 2023-02-18 19:09 | MM ---
Reason for Exam: Screening (asymptomatic). Last mammogram was performed 1 year(s) and 1 month(s) ago. Patient History: Menarche at age 11. Patient has no children. Postmenopausal. Risk Values: Winnie 5 year model risk: 1.5%. NCI Lifetime model risk: 8.5%. Prior Study Comparison: 12/23/2020 Bilateral Screening Mammogram, [facility]. 01/19/2022 Bilateral MG screening mammo w CAD, [facility]. 02/02/2022 Right MG 3D work up w/cad RT, [facility]. Tissue Density: There are scattered fibroglandular densities. Findings: Analyzed By CAD. Pattern appears symmetrical and stable. Chronic nodularity is present upper outer bilateral breasts. No suspicious groups of microcalcifications, spiculated or lobular masses, architectural distortion or other secondary signs of malignancy are mammographically apparent. Overall Assessment: Benign, BI-RAD 2 Management: Screening Mammogram of both breasts in 1 year. A negative mammogram report should not preclude additional follow up of suspicious palpable abnormalities. Patient should continue monthly self breast exam. A clinical breast exam by your physician is recommended on an annual basis and results should be correlated with mammographic findings. Electronically signed and approved by: Jared Steele D.O. Radiologis
== END | disposition home or self-care (01) ==
LOC: RADMAMWWP 14:28
PROVIDERS: ATTEND Family Medicine
DX: Z12.31 Encounter for screening mammogram for malignant neoplasm of breast (principal); Z78.0 Asymptomatic menopausal state
CPT/HCPCS: 77063; 77067

== ENCOUNTER → 2024-02-28 | Outpatient (CLI) | payer OTHER ==
--- NOTE | 2024-02-28 19:00 | MM ---
Reason for Exam: Screening (asymptomatic). Last screening mammogram was performed 12 month(s) ago. Patient History: Menarche at age 11. Patient has no children. Postmenopausal. Risk Values: Winnie 5 year model risk: 1.5%. NCI Lifetime model risk: 8.3%. Prior Study Comparison: 01/19/2022 Bilateral MG screening mammo w CAD, [facility]. 02/02/2022 Right MG 3D work up w/cad RT, [facility]. 02/15/2023 Bilateral MG 3D screening mammo w/cad, [facility]. Tissue Density: There are scattered areas of fibroglandular density. Findings: Analyzed By CAD. The pattern is symmetrical. No significant interval change No suspicious groups of microcalcifications, spiculated or lobular masses, architectural distortion or other secondary signs of malignancy are mammographically apparent. Overall Assessment: Benign, BI-RAD 2 Management: Screening Mammogram of both breasts in 1 year. A negative mammogram report should not preclude additional follow up of suspicious palpable abnormalities. Patient should continue monthly self breast exam. A clinical breast exam by your physician is recommended on an annual basis and results should be correlated with mammographic findings. Note on Winnie scores and lifetime risk: 1. A Winnie score greater than 3% is considered moderate risk. If this is the case, consider specialist referral to assess eligibility for a risk reducing agent. 2. If overall lifetime risk for the development of breast cancer is 20% or higher, the patient may qualify for future screening with alternating mammogram and breast MRI. Electronically signed and approved by: Jared Steele D.O. Radiologis
== END | disposition home or self-care (01) ==
LOC: RADMAMWWP 07:48
PROVIDERS: ATTEND Family Medicine
DX: Z12.31 Encounter for screening mammogram for malignant neoplasm of breast (principal); Z78.0 Asymptomatic menopausal state
CPT/HCPCS: 77063; 77067

== ENCOUNTER 2024-03-25 11:07 | Day surgery (SDC) | payer OTHER ==
[2024-03-24 10:43] VITALS: BMI 28.3
[2024-03-25 11:32] VITALS: TEMP 98.1
[2024-03-25] MEDS: IV FLUID CONTINUATION 1,000 ML IV ONE ×3 (11:46→13:24)
[2024-03-25] MEDS: LACTATED RINGERS 1,000 ML IV SCH (11:49)
[2024-03-25] MEDS ORDERED: LIDOCAINE 1% INJ 10MG/ML (20 ML MDV) ONE (13:06)
[2024-03-25] MEDS ORDERED: PROPOFOL 10 MG/ML 20 ML VIAL IV ONE (13:06)
--- NOTE | 2024-03-25 13:20 | P.PCN ---
Date of Procedure: 03/25/24 Procedure(s) Performed: BRIEF HISTORY: Patient is a 58-year-old pleasant white female scheduled for an elective colonoscopy as a part of screening for colon cancer. PROCEDURE PERFORMED: Colonoscopy with cold snare polypectomy. PREOPERATIVE DIAGNOSIS: Screening for colon cancer. IV sedation per Anesthesia. PROCEDURE: After informed consent was obtained, the patient, was brought into the endoscopy unit. IV sedation was administered by Anesthesia under continuous monitoring. Digital rectal examination was normal. Initially the Olympus CF-160 flexible video colonoscope was then inserted in the rectum, gradually advanced into the cecum without any difficulty. Careful examination was performed as the scope was gradually being withdrawn. Ileocecal valve and the appendiceal orifice were visualized and appeared normal. Prep was excellent. Mucosa of the cecum, ascending colon appeared normal. The hepatic Exa there was a 6 mm polyp that was removed by cold snare polypectomy. Rest of the, transverse colon, descending colon, sigmoid colon, and rectum appeared normal. Retroflexion was performed in the rectum and no lesions were seen. The patient tolerated the procedure well. IMPRESSION: 6 mm hepatic flexure polyp status post cold snare polypectomy Rest of the colon appeared normal RECOMMENDATIONS: Findings of this examination were discussed with the patient as well as her family. She was advised to follow-up with the biopsy results. If the biopsy reveals adenoma recommended repeat colonoscopy in 5 years..
[2024-03-25 13:41] VITALS: BP 134/75; PULSE 87; RESP 17
== END 2024-03-25 14:13 | disposition home or self-care (01) ==
LOC: ORWHC2ENDO 11:07
PROVIDERS: ATTEND Internal Medicine Gastroenterology
DX: D12.3 Benign neoplasm of transverse colon (principal); F41.9 Anxiety disorder, unspecified; F32.A Depression, unspecified; F12.90 Cannabis use, unspecified, uncomplicated; Z88.5 Allergy status to narcotic agent; Z79.899 Other long term (current) drug therapy
CPT/HCPCS: 88305; 45385; J2001; J2704

== ENCOUNTER → 2025-04-02 | Outpatient (CLI) | payer OTHER ==
--- NOTE | 2025-04-02 11:40 | MM ---
Reason for Exam: Screening (asymptomatic). Last mammogram was performed 1 year(s) and 1 month(s) ago. Patient History: Menarche at age 11. Patient has no children. Postmenopausal. Risk Values: Winnie 5 year model risk: 1.6%. NCI Lifetime model risk: 8.1%. Prior Study Comparison: 02/02/2022 Right MG 3D work up w/cad RT, [facility]. 02/15/2023 Bilateral MG 3D screening mammo w/cad, [facility]. 02/28/2024 Bilateral MG 3D screening mammo w/cad, [facility]. Tissue Density: The breasts are almost entirely fatty. Findings: Analyzed By CAD. Right breast: There is no suspicious group of microcalcifications or new suspicious mass. Left breast: There is no suspicious group of microcalcifications or new suspicious mass. Overall Assessment: Negative, BI-RAD 1 Management: Screening Mammogram of both breasts in [address] [facility] will attempt to contact patient to return for supplemental views and ultrasound if indicated. Patient should continue monthly self-breast exams. A clinical breast exam by your physician is recommended on an annual basis. This exam should not preclude additional follow-up of suspicious palpable abnormalities. Note on Winnie scores and lifetime risk: 1. A Winnie score greater than 3% is considered moderate risk. If this is the case, consider specialist referral to assess eligibility for a risk reducing agent. 2. If overall lifetime risk for the development of breast cancer is 20% or higher, the patient may qualify for future screening with alternating mammogram and breast MRI. [facility], , 04/02/2025 11:37 AM. Electronically signed and approved by: Eyad Chu DO
== END | disposition home or self-care (01) ==
LOC: RADMAMWWP 09:25
PROVIDERS: ATTEND Family Medicine
DX: Z12.31 Encounter for screening mammogram for malignant neoplasm of breast (principal); R92.313 Mammographic fatty tissue density, bilateral breasts; Z78.0 Asymptomatic menopausal state
CPT/HCPCS: 77063; 77067